=== PATIENT | female | born 1995 | race Caucasian/White ===

== ENCOUNTER 2020-06-14 14:01 | Outpatient (REF) | payer OTHER, BC, SELFPAY ==
--- NOTE | 2020-06-14 14:10 | XR_ITS ---
EXAMINATION: XR ELBOW, LEFT CLINICAL INFORMATION: Left elbow pain status post injury. COMPARISON: None TECHNIQUE: AP, lateral, and oblique views of the left elbow. FINDINGS: There is a comminuted fracture of the olecranon with mildly displaced transverse components extending into the joint space. The proximal radius and distal humerus are intact. There is a small joint effusion. Moderate soft tissue swelling is seen. XR/XR elbow LT min 3V IMPRESSION: Acute, comminuted intra-articular olecranon fracture with small joint effusion and moderate soft tissue swelling.
--- NOTE | 2020-06-14 14:10 | XR_ITS ---
EXAMINATION: XR WRIST, LEFT CLINICAL INFORMATION: Left wrist pain status post injury. COMPARISON: None TECHNIQUE: PA, lateral, and oblique views of the left wrist. FINDINGS: The bones and soft tissues are normal. No fracture. Alignment is anatomic with normal joint spaces. No erosions or abnormal soft tissue calcifications. XR/XR wrist LT min 3V IMPRESSION: Unremarkable left wrist.
== END 2020-06-14 14:02 | disposition home or self-care (01) ==
LOC: HO.HMGCX 14:01
PROVIDERS: Visit Provider Nurse Practitioner Family
DX: M25.522 Pain in left elbow (principal); M25.532 Pain in left wrist
CPT/HCPCS: 73080; 73110

== ENCOUNTER 2020-06-14 15:44 | Emergency (ER) | payer OTHER, BC, SELFPAY ==
[2020-06-14 16:04] VITALS: BP 143/80; PULSE 73; RESP 17; TEMP 36.9; O2SAT 100; BMI 29.2
--- NOTE | 2020-06-14 16:05 | ED.EXTPRO ---
HPI - Extremity Problem General Chief complaint: Extremity Injury, Upper Stated complaint: elbow inj Time Seen by Provider: 06/14/20 16:05 Source: patient Mode of arrival: ambulatory Limitations: no limitations History of Present Illness HPI Narrative: 24 y/o female presenting from Urgent care with displaced left olecrenon fracture that occurred at work today when she slipped and fell onto her left elbow on 06/11. Urgent care only has slings so she was sent to [facility] for splinting. Orthopedics has been consulted already. She reports pain with movement and palpation. She has been taking ibuprofen with improvement in the pain. MD Complaint: extremity pain Onset (ago): day(s) (5) Pain Consistency: constant Location: left Severity scale (1-10): 7 Quality: aching Radiation: none Relieving factors: immobilization and medication Exacerbating factors: range of motion and palpation Associated symptoms: denies other symptoms Related Data Previous Rx's Medication Instructions Recorded ibuprofen 600 mg PO Q8H PRN #30 tab 06/14/20 Allergies Allergy/AdvReac Type Severity Reaction Status Date / Time No Known Allergies Allergy Verified 06/14/20 13:10 Review of Systems Review of Systems: Constitutional: No Fever, No Chills Cardiovascular: No Chest Pain, No SOB Respiratory: No Cough, No Sputum Gastrointestinal: No Nausea, No Vomiting, No Diarrhea, No abdominal Pain Musculoskeletal: + joint pain, + Myalgias Skin: No Skin Lesions, No rash, +bruising Neuro: No Weakness, No Numbness, No Dizziness, No Headache Psych: No Anxiety/Panic, No Depression Heme/Lymph: + Bruising, No Lymphadenopathy Endocrine: No Polyuria, No Polydipsia PMFSH Past Medical History Attestation statement: The following information was validated with the patient. Medical History (Updated 06/14/20 @ 16:07 by MAIA Schwartz) No known health problems Social History Social History Smoked in Last 30 Days: No Use of substances other than those prescribed or required for medical reasons: No Advance Directives: No Advance Directives Information Provided: Yes Physical Exam Vital Signs: Vital Signs: Vital Signs Temp Pulse Resp BP Pulse Ox 06/14/20 16:04 98.4 F 73 17 143/80 H 100 Body Mass Index 29.2 Appearance: Alert. Oriented X3. No acute distress. HEENT: normal inspection CVS: Normal heart rate and rhythm. Pulses normal. Respiratory: No respiratory distress. Skin: Skin warm and dry. Normal skin color. Normal skin turgor. No rashes. Extremities: left upper extremity with ecchymosis over left elbow and dorsal forearm and volar wrist. normal ROM of wrist without point tenderness, NV intact. elbow tenderness and swelling medially, limited ROM. no shoulder tenderness on palpation Neuro: Oriented X 3. No motor deficit. No sensory deficit. Course Course Course Narrative: sent from urgent care for splint of displaced olecranon fx that occurred 5 days ago - posterior long arm splint applied by nurse. adequate positioning, evaluated personally after application. patient does not want opiate medication for pain. will give Rx for NSAID. she will f/u with Dr. Washington tomorrow. Critical Care Time Critical Care Time Critical Care Time: No Discharge Plan Discharge Clinical Impression: Fracture, olecranon Qualifiers: Encounter type: initial encounter Fracture type: closed Laterality: left Qualified Code(s): S52.022A - Displaced fracture of olecranon process without intraarticular extension of left ulna, initial encounter for closed fracture Patient Disposition: Home, Self-Care Instructions: Elbow Fracture (ED) Additional Instructions: Keep your arm splinted until evaluated by Orthopedics. Elevate you arm to help reduce pain and swelling. If you develop Prescriptions: New ibuprofen 600 mg tablet 600 mg PO Q8H PRN (Reason: pain) Qty: 30 RF: 0 Referrals: Aleida Washington MD [Physician] - 2 days (displaced olecrenon fracture) Stand Alone Forms: Work/School Release
== END 2020-06-14 17:35 | disposition home or self-care (01) ==
LOC: HO.ED 16:27
PROVIDERS: Emergency Provider Emergency Medicine; PCP Family Medicine
DX: S52.032A Displaced fracture of olecranon process with intraarticular extension of left ulna, initial encounter for closed fracture (principal); M25.522 Pain in left elbow; W01.0XXA Fall on same level from slipping, tripping and stumbling without subsequent striking against object, initial encounter; Y93.01 Activity, walking, marching and hiking; Y92.9 Unspecified place or not applicable; Y99.9 Unspecified external cause status
CPT/HCPCS: 99284

== ENCOUNTER → 2020-06-17 10:30 | Outpatient (BNVA) | payer OTHER, BC, SELFPAY | PROVIDERS: PCP Family Medicine; Referring Provider Family Medicine; Visit Provider Physician Assistant | DX: S52.022D Displaced fracture of olecranon process without intraarticular extension of left ulna, subsequent encounter for closed fracture with routine healing (principal) | CPT/HCPCS: 29105; 99202 ==

== ENCOUNTER 2020-06-22 09:30 | Day surgery (SDC) | payer OTHER, BC, SELFPAY ==
--- NOTE | 2020-06-21 12:22 | P.CONAN_ITS ---
Documented by User: Rosibel Murray 06/21/20 12:23 HPI - Anesthesia Eval Consult details Narrative: 24yo F for Ulna Fracture ORIF [facility] Past Medical History Medical History No known health problems Social History Social History Are you a primary care professional to a significant other at home: No Do you presently have visiting nurse or other home services: No Smoking Status: Never smoker Years Smoked: 1 Use of substances other than those prescribed or required for medical reasons: No Advance Directives: No Advance Directives Information Provided: No (unknown) Advance Directives on File: No Recently lost weight without trying: No 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 Allergies Allergy/AdvReac Type Severity Reaction Status Date / Time No Known Allergies Allergy Verified 06/17/20 10:40 Home Medications Medication Instructions Recorded Confirmed Type drospirenone-ethinyl estradiol tab 06/22/20 06/22/20 History [Radha] Exam Exam Date and Time: June 21, 2020 1222 Assessment and Plan Assessment Anesthesia Assessment: Chart Reviewed Documented by User: Rajwinder Bah 06/22/20 12:06 [facility] Past Medical History Medical History No known health problems Social History Social History Are you a primary care professional to a significant other at home: No Do you presently have visiting nurse or other home services: No Smoking Status: Never smoker Years Smoked: 1 Use of substances other than those prescribed or required for medical reasons: No Advance Directives: No Advance Directives Information Provided: No (unknown) Advance Directives on File: No Recently lost weight without trying: No 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 Allergies Allergy/AdvReac Type Severity Reaction Status Date / Time No Known Allergies Allergy Verified 06/17/20 10:40 Home Medications Medication Instructions Recorded Confirmed Type drospirenone-ethinyl estradiol tab 06/22/20 06/22/20 History [Radha] Exam Airway Mallampati Class: II TM Dist: >3cm Neck ROM: Full Assessment and Plan Assessment Anesthesia Assessment: Anesthesia Plan Discussed and Chart Reviewed Final Anesthetic Review NPO: Yes ASA Class: II Final Preanesthetic Review: No Changes in Pt Med Stat, Meds/Allgs Chart Reviewed, Consent Obtained/Reviewed and Anes Risks/Benef Reviewed Patient Risk: Low Procedure Risk: Low Assessment/Block/Sedation in SS: Assess/Block/Sedation-SS Anesthetic Plan Anesthetic Plan: GA Disposition: Standard PACU
[2020-06-22] VITALS (7 sets, daily range): BP systolic 116–151; BP diastolic 64–95; PULSE 84–133; RESP 16–20; TEMP 36.1–37.6; O2SAT 93–96; BMI 29.2
[2020-06-22 10:05] LABS: UPreg QC Valid YES
[2020-06-22 10:06] LABS: Urine Pregnancy NEGATIVE (NEGATIVE)
[2020-06-22] MEDS: ceFAZolin Sodium/Dextrose,Iso 2 GM/50 ML PIGGYBACK IV (10:40)
[2020-06-22] MEDS: Lactated Ringers 1,000 ML 100 ML IVCONT (10:40)
--- NOTE | 2020-06-22 11:49 | FL_ITS ---
EXAMINATION: XR FLUOROSCOPY WITH IMAGES CLINICAL INFORMATION: Comminuted intra-articular olecranon fracture. COMPARISON: Radiographs left elbow 06/14/2020 TECHNIQUE: Fluoroscopy performed by Dr. José Manuel Pace. Fluoroscopy time: 0.5 minutes DAP: [id number] Gycm2 Images: 4 FINDINGS: The comminuted olecranon fracture is reduced with plate and multiple screws. There is near-anatomic alignment. The hardware appears intact. There is no dislocation. FL/FL guidance in OR IMPRESSION: Status post reduction olecranon fracture. Hardware intact.
--- NOTE | 2020-06-22 14:20 | PM.OP ---
Brief Operative Note Date of procedure: 06/22/20 Pre-op diagnosis: left olecranon fracture Post-op diagnosis: same Procedure: ORIF left olecranon Surgeon: José Manuel Pace MD Anesthesia: GETA and regional Estimated blood loss (mL): 20 Tourniquet time (min): 54 IV fluids (mL): 1,000 Pathology: none sent Condition: stable Disposition: PACU
--- NOTE | 2020-06-22 15:38 | HO.POSTANES ---
Post Anesthesia Evaluation Post Anesthesia Evaluation Vital Signs: Vital Signs Temp Pulse Resp BP Pulse Ox 06/22/20 15:10 97 F 88 16 133/84 94 06/22/20 14:55 89 16 118/78 93 06/22/20 14:40 85 16 129/86 95 06/22/20 14:36 133 H 16 133/71 95 06/22/20 14:31 84 16 116/64 95 06/22/20 14:26 97.4 F 85 20 151/95 H 95 06/22/20 10:25 99.7 F 98 16 128/84 96 Anesthesia: Nerve Block and General LMA Mental Status: Awake Pain Control: Satisfactory Nausea/Vomiting: None Hydration: Adequate Anesthesia-Related Issues: No Anes. Related Issues
--- NOTE | 2020-07-06 08:14 | OP_ITS ---
SURGEON: José Manuel Pace MD INDICATIONS: This is a 24-year-old woman, who fell onto her left elbow sustaining an intra-articular comminuted olecranon fracture. She was consented to undergo ORIF. PREOPERATIVE DIAGNOSIS: Left olecranon fracture. POSTOPERATIVE DIAGNOSIS: Left olecranon fracture. PROCEDURE PERFORMED: Open reduction and internal fixation of left olecranon. ESTIMATED BLOOD LOSS: 20 mL. COMPLICATIONS: ANESTHESIA: General and regional. ASSISTANTS: None. SPECIMENS: TOURNIQUET TIME: 54 minutes. FLUIDS: 1 L. DESCRIPTION OF PROCEDURE: The patient was brought to the operating room, placed supine on the operative table, and prepped and draped in standard sterile fashion. A time-out was called to identify proper site, proper procedure, proper surgeon, and IV antibiotics per weight were administered. I began by exsanguinating the limb and insufflating the tourniquet to 250 mmHg. A standard midline incision was made slightly radial from the tip of the olecranon, approximately 5 cm distal. Dissection was taken down to the proximal ulna, where the fracture fragments were easily identifiable. There was a proximal piece adjacent to intra-articular piece that were unstable. These were close to the articulation, and therefore, I was unable to place any interfragmentary screws. I selected a locking olecranon plate and placed 1 proximal home-run screw through the fracture fragments, and then, using standard AO technique, I placed a screw through the oblong hole and was able to compress the fragments distally. Biplanar fluoroscopy was used to confirm reduction and I was happy under both visual inspection and fluoroscopy with the reduction. Two additional locking screws were placed proximally and 2 additional bicortical locking screws were placed distally. I took the elbow through range of motion. I was happy with the range. I was happy with the location of the plate and the position of the fragments. Therefore, all instrumentation was removed. Copious irrigation was performed and a layered closure with luz on the skin was undertaken. The patient was placed into a well-padded posterior splint, extubated, and brought to the recovery room in stable condition. There were no known complications. GRAFT OR IMPLANTS: Benson olecranon plate. José Manuel Pace MD NE/MODL / [id number]
== END 2020-06-22 15:42 | disposition home or self-care (01) ==
PROVIDERS: Nurse Practitioner; PCP Family Medicine; Visit Provider Orthopaedic Surgery
PROC: (CPT 24685; principal; 2020-06-22 11:40)
DX: S52.032A Displaced fracture of olecranon process with intraarticular extension of left ulna, initial encounter for closed fracture (principal); W01.0XXA Fall on same level from slipping, tripping and stumbling without subsequent striking against object, initial encounter; Y93.01 Activity, walking, marching and hiking; Y92.9 Unspecified place or not applicable; Y99.8 Other external cause status
CPT/HCPCS: 24685; 81025; C1713; J0690; J1100; J1170; J2250; J2405; J2765; J3010

== ENCOUNTER → 2020-06-30 12:20 | Outpatient (BNVA) | payer OTHER, BC, SELFPAY | PROVIDERS: PCP Family Medicine; Visit Provider Physician Assistant | DX: S52.031D Displaced fracture of olecranon process with intraarticular extension of right ulna, subsequent encounter for closed fracture with routine healing (principal) | CPT/HCPCS: 99212 ==

== ENCOUNTER 2020-07-14 13:41 | Outpatient (REF) | payer OTHER, BC, SELFPAY ==
--- NOTE | 2020-07-14 13:41 | XR_ITS ---
EXAMINATION: XR ELBOW, LEFT CLINICAL INFORMATION: Comminuted intra-articular olecranon fracture. Status post reduction. COMPARISON: Spot views left elbow 06/22/2020 and radiographs left elbow 06/14/2020. TECHNIQUE: AP, lateral, and oblique views of the left elbow. FINDINGS: The comminuted intra-articular olecranon fracture is reduced with dorsal side plate and multiple screws. The hardware is intact. Fracture fragments are in near-anatomic alignment. There is no destructive process or dislocation. No significant intra-articular effusion appreciated. XR/XR elbow LT min 3V IMPRESSION: Status post reduction olecranon fracture. Hardware intact.
== END 2020-07-14 13:42 | disposition home or self-care (01) ==
LOC: HO.HOSX 13:41
PROVIDERS: Visit Provider Physician Assistant
DX: M25.522 Pain in left elbow (principal); S52.031D Displaced fracture of olecranon process with intraarticular extension of right ulna, subsequent encounter for closed fracture with routine healing; X58.XXXD Exposure to other specified factors, subsequent encounter
CPT/HCPCS: 73080; 99212

== ENCOUNTER 2020-07-18 07:04 | Outpatient (REF) | payer OTHER, BC, SELFPAY | END 2020-07-18 07:05 | disposition home or self-care (01) | LOC: HO.LAB 07:04 | PROVIDERS: Visit Provider Internal Medicine | DX: Z20.828 Contact with and (suspected) exposure to other viral communicable diseases (principal) | CPT/HCPCS: C9803; U0003 ==

== ENCOUNTER 2020-08-01 11:50 | Outpatient (REF) | payer OTHER, BC, SELFPAY ==
--- NOTE | 2020-08-01 12:22 | XR_ITS ---
EXAMINATION: XR ELBOW, LEFT CLINICAL INFORMATION: Right olecranon process fracture. COMPARISON: 07/14/2020 and 06/14/2020. TECHNIQUE: AP, lateral, and oblique views of the left elbow. FINDINGS: There is no change in alignment of the left elbow status post sideplate and screw fixation for previously noted comminuted olecranon process fracture. No effusion is identified. No dislocation is seen. Fracture lines are less evident. Hardware is intact. XR/XR elbow LT min 3V IMPRESSION: Status post reduction with plate and screw fixation of left olecranon process fracture with anatomic alignment.
== END 2020-08-01 11:51 | disposition home or self-care (01) ==
LOC: HO.HOSX 11:50
PROVIDERS: Visit Provider Orthopaedic Surgery
DX: S52.031D Displaced fracture of olecranon process with intraarticular extension of right ulna, subsequent encounter for closed fracture with routine healing (principal); X58.XXXD Exposure to other specified factors, subsequent encounter
CPT/HCPCS: 73080; 99212

== ENCOUNTER → 2020-08-22 12:46 | Outpatient (BNVA) | payer OTHER, BC, SELFPAY | PROVIDERS: Visit Provider Orthopaedic Surgery | DX: S52.031D Displaced fracture of olecranon process with intraarticular extension of right ulna, subsequent encounter for closed fracture with routine healing (principal) | CPT/HCPCS: 99212 ==

== ENCOUNTER → 2020-09-19 08:55 | Outpatient (BNVA) | payer OTHER, BC, SELFPAY | PROVIDERS: Visit Provider Orthopaedic Surgery | DX: S52.031D Displaced fracture of olecranon process with intraarticular extension of right ulna, subsequent encounter for closed fracture with routine healing (principal) | CPT/HCPCS: 99212 ==

== ENCOUNTER → 2020-10-31 09:07 | Outpatient (BNVA) | payer OTHER, BC, SELFPAY | PROVIDERS: Visit Provider Orthopaedic Surgery | DX: S52.202D Unspecified fracture of shaft of left ulna, subsequent encounter for closed fracture with routine healing (principal); S52.023D Displaced fracture of olecranon process without intraarticular extension of unspecified ulna, subsequent encounter for closed fracture with routine healing | CPT/HCPCS: 99212 ==

== ENCOUNTER 2020-11-30 10:30 | Outpatient (RCR) | payer OTHER, BC, SELFPAY ==
--- NOTE | 2020-08-02 15:54 | MHC.OT.OEV ---
[address] [phone] F: [phone] Occupational Therapy Evaluation Diagnosis: FRACTURE OF RIGHT ULNA, S/P ORIF Date of Onset: 06/11/20 Date of Surgery: 06/22/20 Attending Provider: Alana Chun Prescribed Treatment: EVAL AND TREAT MD Follow Up Appointment: 08/22/20 History of Current Condition: FELL ONTO HER LEFT ELBOW AFTER TRIPPING ON A SIDEWALK, ATTEMPTED TO BRACE HER FALL WITH LEFT ARM. S/P ORIF ON 06/22/20. XRAY SHOWS DISPLACED FRACTURE OF OLECRANON PROCESS WITH INTRAARTICULAR EXTENSION OF RIGHT ULNA Significant Medical History: UNREMARKABLE Precautions/Contraindications: NO LIFTING AND STRENGTHENING 07/14/20 Patient Goals: TO REGAIN MUCH MOTION POSSIBLE AND LIFT FOR A SAFE RETURN BACK TO WORK Hand Dominance: Right Observations: GUARDING OF LEFT ELBOW QuickDASH Score: 50 Prior Level of Function and Occupation Self Care, Employment, Leisure: [employer] Living Situation, Family and/or Social Support: LIVES WITH PARENTS HOBBIES INCLUDE READING AND WATCHING TV/MOVIES Current Level of Function and Occupation Self Care, Employment, Leisure: CURRENTLY OOW. 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 Sleep: MINIMAL TO NO INTERRUPTIONS ONCE ASLEEP AT NIGHT Driving: HAS NOT DRIVEN MUCH SINCE INJURY, PARENTS ASSISTING WITH TRANSPORTATION Pain Assessment Pain Score: 3-6/10 Pain Scale Used: Numeric (0 - 10) Pain Location and Description: ELBOW 3-6/10; ACHY AND THROBBING Aggravating Factors: ELBOW FLEXION Alleviating Factors: IBUPROFEN Skin and Soft Tissue Assessment Skin and Soft Tissue: Swelling Wound Scar Tissue Comments: HEALING SURGICAL SCAR TO ELBOW WITH EDEMA PRESENT Sensory Assessment Temperature: Light Touch: Left Impaired Proprioception: Vibration: Comments: [place], DIMINISHED TO LIGHT TOUCH AND LOSS OF PROTECTIVE SENSATION AT SURGICAL SITE Edema Assessment Upper Extremity: Left Impaired Lower Extremity: Comments: CIRCUMFERENCE OF FOREARM 20 CM PROXIMAL TO U.S. LEFT: 25.8 CM, RIGHT: 24.9 CM Dexterity Assessment Dexterity: WFL Comments: CONTINUE TO ASSESS IF WARRANTED Special Tests Comments: AROM(PROM) Strength Shoulder Flexion: L 125, R 152 Extension: Abduction: Internal Rotation: External Rotation: Comments: Flexion: Extension: Abduction: Internal Rotation: External Rotation: Comments: Elbow Flexion: L 90, R 158 Extension: L 2, R 34 Pronation: L 92 Supination: L 40 Comments: Flexion: Extension: Pronation: Supination: Comments: Wrist Flexion: L 40 Extension: L 52 Ulnar Deviation: Radial Deviation: Comments: Flexion: Extension: Ulnar Deviation: Radial Deviation: Comments: Digits Index MCP: PIP: DIP: Long MCP: PIP: DIP: Ring MCP: PIP: DIP: Small MCP: PIP: DIP: Comments: Gross Grasp: Lateral Pinch: Two-Point Pinch: Three-Jaw Neo: Comments: CONTINUE TO ASSESS Patient Education Primary Language: Citizen Of [place] Waiter And Cashier Required: No Current Knowledge: Understands information with skills for self-management Teaching Method: Demonstration Handouts Verbal Education Needs Identified on Evaluation: ADL's Disease Information Equipment Use Exercise Pain Safety How did patient/family demonstrate learning? Patient demonstrates Patient verbalizes Needs reinforcement Barriers to Learning: None Readiness for Learning: Accepting Who was educated? Patient Comments: Plan of Care Assessment: LEFTY IS 5 WEEKS, 6 DAYS S/P ORIF L ELBOW FROM A FALL ONTO THE NON-DOMINANT L ELBOW. SHE HAS MOD TO HIGH PAIN AT HE ELBOW. SHE REPORTS A 50% LIMITATION PER THE QUICK DASH ASSESSMENT. Pt WOULD BENEFIT FROM SKILLED OT TO ACHIEVE HER OPTIMAL FUNCTIONAL LEVEL AND IMPROVE HER QOL FOR A SAFE RETURN TO WORK AND MEANINGFUL ACTIVITIES. STG Duration: 3 WEEKS Short Term Goals: IND HEP IND SCAR MASSAGE IND EDEMA MANAGEMENT WEAN FROM ORTHOSIS REPORT <3/10 PAIN AT REST AND <5/10 WITH ADLs L SUPINATION 55 DEGREES L EXTENSION 25 DEGREES, FLEXION 110 DEGREES L WRIST FLEX >55 DEGREES LTG Duration: 6 WEEKS Prison Goals: L ELBOW EXT <10 DEGREES, FLEX >140 DEGREES L SHOULDER FLEX >145 DEGREES L GROSS GRASP >40 POUNDS TOLERATE LIFTING 30 POUNDS WITH <3/10 PAIN TO L ELBOW TOLERATE WORK CONDITIONING ACT WITH <3/10 PAIN TO L ELBOW B/L ELBOW CIRCUMFERENCE GROSSLY EQUAL QUICK DASH <20 Frequency and Duration: The patient will be seen 2x/WEEK FOR 6 WEEKS Treatment Plan: Therapeutic Exercise Therapeutic Activity Home Exercise Program Splinting Neuro Re-ed Patient Education Desensitization/Sensory Re-ed Edema Control ADL Training NMES MHP Cold Packs Joint Mobilization Soft Tissue Mobilization Kinesiotaping Electronically Signed By: ROSA MARIA BA OTR/L Please sign and return to therapist, Thank you for your referral.
== END 2020-12-20 16:03 | disposition other institution (70) ==
LOC: HO.OT 10:30
PROVIDERS: Visit Provider Physician Assistant
DX: S52.031D Displaced fracture of olecranon process with intraarticular extension of right ulna, subsequent encounter for closed fracture with routine healing (principal)
CPT/HCPCS: 97014; 97033; 97035; 97110; 97140; 97166; 97530; 97760

== ENCOUNTER 2020-12-01 07:46 | Outpatient (REF) | payer OTHER, BC, SELFPAY ==
--- NOTE | ~2020-12-01 | XR_ITS ---
EXAMINATION: XR ELBOW, LEFT CLINICAL INFORMATION: Displaced fracture of olecranon process COMPARISON: 08/01/2020 TECHNIQUE: AP and lateral views of the left elbow. FINDINGS: Dorsal plate and screw fixation construct is present at the proximal ulna. The fracture line at the olecranon is less apparent as compared to prior, suggesting partial healing. Assessment is somewhat limited by overlapping hardware. No new fractures are identified. Alignment at the elbow joint is appropriate. No loose bodies. No joint effusion. Soft tissues are unremarkable. XR/XR elbow LT 2V IMPRESSION: Progressive healing of the ulnar fracture status post ORIF.
== END 2020-12-01 07:47 | disposition home or self-care (01) ==
LOC: HO.HOSX 07:46
PROVIDERS: Visit Provider Orthopaedic Surgery
DX: S52.031D Displaced fracture of olecranon process with intraarticular extension of right ulna, subsequent encounter for closed fracture with routine healing (principal); Z96.9 Presence of functional implant, unspecified
CPT/HCPCS: 73070; 99212

== ENCOUNTER 2020-12-14 06:22 | Day surgery (SDC) | payer BC, SELFPAY ==
[2020-12-08 10:27] VITALS: BMI 30.9
--- NOTE | 2020-12-13 08:50 | P.CONAN_ITS ---
Documented by User: Rosibel Murray 12/13/20 08:51 HPI - Anesthesia Eval Consult details Narrative: 25yo F for Left Removal Orthopedic Hardware,elbow s/p ORIF with GA-LMA and block 06/2020 PMFSH Active Problems Active Problems: All Active Problems (Updated 10/18/20 @ 12:33 by Alana Chun PA-C) Elbow pain (Acute) Wrist pain (Acute) Olecranon fracture (Acute) Displaced fracture of olecranon process with intraarticular extension of right ulna, subsequent encounter for closed fracture with routine healing (Acute) Fracture of left ulna with routine healing (Acute) Past Medical History Medical History No known health problems Surgical History Surgical History H/O elbow surgery Social History Social History Smoking Status: Former smoker Years Smoked: 1 Advance Directives Information Provided: No Current occupation: [employer] Allergies Allergy/AdvReac Type Severity Reaction Status Date / Time No Known Allergies Allergy Verified 12/14/20 06:35 Home Medications Medication Instructions Recorded Confirmed Last Taken Type drospirenone-ethinyl estradiol 1 tab PO DAILY 06/22/20 12/08/20 Unknown History [Radha] Exam Exam Date and Time: December 13, 2020 0850 Height,Weight and Vital Signs: Height 5 ft 4 in Weight 81.647 kg Assessment and Plan Assessment Anesthesia Assessment: Chart Reviewed Documented by User: Rajwinder Bah 12/14/20 07:57 [facility] Past Medical History Medical History No known health problems Surgical History Surgical History H/O elbow surgery Social History Social History (Reviewed 12/14/20 @ 07:56 by Rajwinder Magaña Smoking Status: Former smoker Years Smoked: 1 Advance Directives Information Provided: No 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 Meds Allergies Allergy/AdvReac Type Severity Reaction Status Date / Time No Known Allergies Allergy Verified 12/14/20 06:35 Home Medications Medication Instructions Recorded Confirmed Last Taken Type drospirenone-ethinyl estradiol 1 tab PO DAILY 06/22/20 12/08/20 Unknown History [Radha] Exam Airway Mallampati Class: II TM Dist: >3cm Neck ROM: Full Assessment and Plan Assessment Anesthesia Assessment: Anesthesia Plan Discussed and Chart Reviewed Final Anesthetic Review NPO: Yes ASA Class: I Final Preanesthetic Review: No Changes in Pt Med Stat, Meds/Allgs Chart Reviewed, Consent Obtained/Reviewed and Anes Risks/Benef Reviewed Patient Risk: Low Procedure Risk: Low Assessment/Block/Sedation in SS: Assess/Block/Sedation-SS Anesthetic Plan Anesthetic Plan: GA Disposition: Standard PACU
[2020-12-14] VITALS (7 sets, daily range): BP systolic 124–152; BP diastolic 57–83; PULSE 80–124; RESP 16–18; TEMP 36.5–37.1; O2SAT 95–97
--- NOTE | ~2020-12-14 | FL_ITS ---
EXAMINATION: XR FLUOROSCOPY WITH IMAGES CLINICAL INFORMATION: Removal hardware left elbow COMPARISON: Radiographs left elbow 12/01/2020 TECHNIQUE: Fluoroscopy performed by Dr. José Manuel Pace. Fluoroscopy time: 9 seconds DAP: 7568.7 mGycm2 Images: 1 FINDINGS: The fluoroscopic spot view shows no remaining hardware in the [id number]. There are some expected screw tracks present. Bony structures are otherwise unremarkable. FL/FL guidance in OR IMPRESSION: Status post removal hardware left elbow.
[2020-12-14 06:54] LABS: UPreg QC Valid YES; Urine Pregnancy NEGATIVE (NEGATIVE)
[2020-12-14] MEDS: Lactated Ringers 1,000 ML 100 ML IVCONT (07:08)
--- NOTE | 2020-12-14 07:34 | MHC.SHP ---
Pre-Procedural Eval Section B Chief Complaint: removal of elbow hardwear Allergies: Allergies Allergy/AdvReac Type Severity Reaction Status Date / Time No Known Allergies Allergy Verified 12/14/20 06:35 Review of Systems Sugical H&P ROS: Negative: Constitution, Cardiovascular, Respiratory, Neurological, Psychiatric, Hem-Onc, Allergic/Immunologic, Gastrointestinal, Genitourinary and Integumentary and Yes, Specify: Musculoskeletal (left elbow stiffness) Exam Surgical H&P Exam: Normal: HEENT, Normal: Heart, Normal: Lungs, Normal: Abdomen, Normal: Skin and Normal: Neurological and Significant Findings: Extremities (well healed incision) Plan Diagnosis/Plan: Change I have reviewed the history and physical and performed a pertinent physical examination on my patient. No changes have occurred unless specified. Plan is to proceed with removal of hardware left ulna.
--- NOTE | 2020-12-14 09:24 | PM.OP ---
Brief Operative Note Date of Service: 12/14/20 Pre-op diagnosis: retained ortho hardware left elbow Post-op diagnosis: same Procedure: removal of hardware left elbow Implants: none Surgeon: José Manuel Pace MD Anesthesia: GETA and local Was an Anatomic Pathology Assistant used for this Procedure?: Yes Estimated blood loss (mL): 20 Tourniquet time (min): 25 IV fluids (mL): 500 Pathology: none sent Condition: stable Disposition: PACU
--- NOTE | 2020-12-14 09:26 | W.PM.OPN ---
Operative Note Operative Note Date of Service: 12/14/20 Narrative: Date of Service: 12/14/20 Pre-op diagnosis: retained ortho hardware left elbow Post-op diagnosis: same Procedure: removal of hardware left elbow Implants: none Surgeon: José Manuel Pace MD Anesthesia: GETA and local Was an Nanosystems Engineer used for this Procedure?: Yes Estimated blood loss (mL): 20 Tourniquet time (min): 25 IV fluids (mL): 500 Pathology: none sent Condition: stable Disposition: PACU Procedure in detail: Patient was brought to the operating room and placed supine on the surgical table. She was prepped and draped in standard sterile fashion and a time out was called to identify proper site, proper procedure and IV antibiotics per weight were administered. I insufflated the tourniquet to 250 mm Hg and made an incision directly over the prior incision. The plate was identified with sharp dissection and 6 screws removed without difficulty. The plate was then removed and the bone curreted down. Prior to plate removal I flexed her elbow and did obtain 120 deg of motion after audible adhesiolysis. Her extension remained at -10deg. Once the plate was removed I irrigated copiously and closed with running 2.0 Vicryl and skin glue. She was placed in sterile dressing and a sling and extubated and brought to the recovery room in stable condition.
[2020-12-14] MEDS: Acetaminophen 325 MG TABLET 650 MG PO (09:52)
[2020-12-14] MEDS: oxyCODONE HCl Immed Release 5 MG TABLET PO (09:52)
== END 2020-12-14 11:35 | disposition home or self-care (01) ==
PROVIDERS: Nurse Practitioner; PCP Family Medicine; Visit Provider Orthopaedic Surgery
PROC: (CPT 20680; principal; 2020-12-14 08:20)
DX: T84.84XA Pain due to internal orthopedic prosthetic devices, implants and grafts, initial encounter (principal); G89.18 Other acute postprocedural pain; M25.622 Stiffness of left elbow, not elsewhere classified; Z96.89 Presence of other specified functional implants; Z87.891 Personal history of nicotine dependence
CPT/HCPCS: 20680; 81025; J0690; J1100; J2250; J2405; J3010

== ENCOUNTER 2020-12-26 07:37 | Outpatient (REF) | payer OTHER, BC, SELFPAY | END 2020-12-26 07:38 | disposition home or self-care (01) | LOC: HO.HOSX 07:37 | PROVIDERS: Visit Provider Physician Assistant | DX: Z47.89 Encounter for other orthopedic aftercare (principal); M25.522 Pain in left elbow | CPT/HCPCS: 99212 ==

== ENCOUNTER → 2021-01-16 13:40 | Outpatient (BNVA) | payer OTHER, BC, SELFPAY | PROVIDERS: PCP Family Medicine; Visit Provider Physician Assistant | DX: S52.032D Displaced fracture of olecranon process with intraarticular extension of left ulna, subsequent encounter for closed fracture with routine healing (principal); M25.522 Pain in left elbow; Z98.890 Other specified postprocedural states | CPT/HCPCS: 99212 ==

== ENCOUNTER 2021-01-26 10:30 | Outpatient (RCR) | payer OTHER, BC, SELFPAY ==
--- NOTE | 2020-12-26 13:33 | MHC.OT.OEV ---
[address] [phone] F: [phone] Occupational Therapy Evaluation Diagnosis: S/P HARDWARE REMOVAL FROM L ELBOW Date of Onset: 06/11/20 Date of Surgery: 12/14/20 Attending Provider: José Manuel Downs Prescribed Treatment: EVWHIT AND GUANAKITO WYMAN Follow Up Appointment: 12/26/20 History of Current Condition: Pt HAD REMOVAL OF HARDWARE TO HER LEFT ELBOW ON 12/14/[address] DOWNS. HER HISTORY INCLUDES A LEFT OLECRANON FRACTURE FROM A FALL, SHE UNDERWENT AN ORIF OF HER LEFT OLECRANON ON 06/22/20. 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 IND ALL ADLs AND IADLs. 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 MODERATE DIFFICULTIES WITH PERFORMING IADLs AND CARRYING ITEMS. Sleep: DENIES INTERRUPTIONS FROM PAIN Driving: NOT CURRENTLY DRIVING POST-OP Pain Assessment Pain Score: 2-5/10 Pain Scale Used: Numeric (0 - 10) Pain Location and Description: L ELBOW Aggravating Factors: STRETCHING IN FLEXION > EXTENSION OF ELBOW; MOVING LEFT ARM Alleviating Factors: PAIN MEDICATION AND ICE Skin and Soft Tissue Assessment Skin and Soft Tissue: Swelling Wound Ecchymosis Comments: BANDAGE TO L LATERAL ELBOW, ECCHYMOSIS TO POSTERIOR UPPER ARM Sensory Assessment Temperature: Light Touch: WFL Proprioception: Vibration: Comments: INTACT PER SEMMES [place] ASSESSMENT Edema Assessment Upper Extremity: Left Impaired Lower Extremity: Comments: CIRCUMFERENCE OF WRIST, DISTAL TO U.S. LEFT 15.9 CM, RIGHT 15.1 CM CIRCUMFRENCE 15 CM PROXIMAL TO U.S. LEFT 25.8 CM, RIGHT 25.5 CM Dexterity Assessment Dexterity: Comments: FUNCTIONAL DEXTERITY TEST: LEFT 38 SECONDS (MODERATELY FUNCTIONAL), RIGHT 23 SECONDS (FUNCTIONAL) Special Tests Comments: AROM(PROM) Strength Elbow Flexion: L 105, R 150 Extension: L 45, R 5 Pronation: L 90, R 90 Supination: L 75, R 82 Comments: Flexion: Extension: Pronation: Supination: Comments: Wrist Flexion: L 55, R 65 Extension: L 65, R 48 Ulnar Deviation: Radial Deviation: Comments: Flexion: Extension: Ulnar Deviation: Radial Deviation: Comments: Digits Index MCP: PIP: DIP: Long MCP: PIP: DIP: Ring MCP: PIP: DIP: Small MCP: PIP: DIP: Comments: Gross Grasp: R 35 Lateral Pinch: R 11 Two-Point Pinch: R 5 Three-Jaw Neo: R 7 Comments: L DEFERRED Patient Education Primary Language: [place]ogshead Hooper Required: No Current Knowledge: Understands information with skills for self-management Teaching Method: Demonstration Handouts Verbal Education Needs Identified on Evaluation: ADL's Disease Information Equipment Use Exercise Pain Safety How did patient/family demonstrate learning? Patient demonstrates Patient verbalizes Barriers to Learning: None Readiness for Learning: Accepting Who was educated? Patient Comments: Plan of Care Assessment: LEFTY IS 12 DAYS POST OP FROM HARDWARE REMOVAL FROM PREVIOUS ORIF OF L OLECRANON. 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 Pt COMES TO OUTPATIENT OT FOR HER EVALUATION WEARING A SLING TO HER LUE AND REPORTS SOME APPREHENSION WITH COMPLETING ROM AT HOME. SHE HAS EDEMA TO HER DIGITS, WRIST AND ELBOW, WELL ROM LIMITATIONS IN HER ELBOW DESCRIBED ABOVE. SHE REPORTS A 45% LIMITATION PER THE QUICK DASH ASSESSMENT. SHE WOULD BENEFIT FROM ONGOING OT TO ADDRESS THE AREAS MENTIONED ABOVE AND IMPROVE HER QOL. STG Duration: 4 WEEKS Short Term Goals: IND WITH COMPLIANCE WITH HEP IND EDEMA MANAGEMENT IND SCAR MOBILIZATION IND USE OF HEAT/ICE L ELBOW EXT 20 DEGREES L ELBOW FLEX 115 DEGREES LTG Duration: 8 WEEKS Skilled Nursing Goals: QUICK DASH <25% L GRASP >25 POUNDS L ELBOW FLEX >130 DEGREES L ELBOW EXT <10 DEGREES REPORT <2/10 PAIN WITH ADLs AND IADLs TOLERATE LIFTING >20 POUNDS WITH <2/10 PAIN IND PROGRESSION OF HEP Frequency and Duration: The patient will be seen 2X/WEEK FOR 8 WEEKS Treatment Plan: Therapeutic Exercise Therapeutic Activity Home Exercise Program Splinting Neuro Re-ed Patient Education Desensitization/Sensory Re-ed Edema Control ADL Training Ultrasound NMES Iontophoresis Paraffin Fluidotherapy MHP Cold Packs Joint Mobilization Soft Tissue Mobilization Kinesiotaping Electronically Signed By: ROSA MARIA BA OTR/L Reviewed/agree with student documentation: N/A Therapist: Please sign and return to therapist, Thank you for your referral.
--- NOTE | 2021-02-07 11:14 | MHC.OT.DC ---
[address] [phone] F: [phone] Occupational Therapy Discharge Note Provider: Alana Chun Diagnosis: S/P HARDWARE REMOVAL FROM L ELBOW Date of Surgery: 12/14/20 Date of Evaluation: 12/26/20 Date of Discharge: 02/07/21 Treatments to Date: 9 Cancellations to Date: 4 Discharge Status: Improved Function Independent with HEP Patient Elected to Stop Discharge Summary: LEFTY RETURNED TO OUTPATIENT OT FOLLOWING HARDWARE REMOVAL FROM HER NON DOMINANT LEFT ELBOW. SHE CONTINUED TO REPORT LOW TO MODERATE PAIN WITH ROM AND STRENGTHENING ACTIVITY. SHE WAS BEGINNING TO MAINTAIN HER ROM GAINS FROM EACH TREATMENT SESSION, AND PROGRESS WITH STRENGTHENING EXERCISES. LEFTY ELECTED TO DISCONTINUE OT SESSIONS DUE TO SCHEDULING CONFLICTS AND WILL BE TRANSITIONED TO A HOME BASED PROGRAM. D/C OT SERVICES. Electronically Signed By: ROSA MARIA BA OTR/L Reviewed/agree with student documentation: N/A Therapist: Please Sign and return to therapist, thank you for your referral.
== END 2021-02-08 15:15 | disposition home or self-care (01) ==
LOC: HO.OT 10:30
PROVIDERS: Visit Provider Physician Assistant
DX: S52.031D Displaced fracture of olecranon process with intraarticular extension of right ulna, subsequent encounter for closed fracture with routine healing (principal); Z98.890 Other specified postprocedural states
CPT/HCPCS: 97110; 97140; 97166; 97530